=== PATIENT | female | born 1965 | race Hispanic/Latino ===

== ENCOUNTER 2022-01-10 06:53 | Inpatient (IN) | payer OTHER ==
[2022-01-04 12:13] LABS: BASOPHILS % (AUTO) 0.5 % (0.0-5.0); EOSINOPHILS % (AUTO) 2.6 % (0.0-8.0); HEMATOCRIT 45.6 % (36-48); LYMPHOCYTES % (AUTO) 34.1 % (21.0-51.0); MEAN CORPUSCULAR HEMOGLOBIN 25.8 pg (27.0-33.0); MEAN CORPUSCULAR HGB CONC 31.1 g/dL (32.0-36.0); MEAN CORPUSCULAR VOLUME 82.8 fL (79-99); MONOCYTES % (AUTO) 4.7 % (3.0-13.0); NEUTROPHILS % (AUTO) 57.8 % (40.0-77.0); PLATELET COUNT (AUTO) 278 K/uL (130-400); RED BLOOD CELL COUNT(AUTO) 5.51 MIL/uL (4.00-5.50); RED CELL DISTRIBUTION WIDTH 13.5 % (11.0-15.5); WHITE BLOOD COUNT (AUTO) 6.6 K/uL (4.8-10.8)
[2022-01-04 12:52] LABS: ALBUMIN 3.8 g/dL (3.5-5.0); BILIRUBIN,TOTAL 0.6 mg/dL (0.2-1.0); CREATININE 0.6 mg/dL (0.5-1.5); TOTAL PROTEIN, SERUM 7.5 g/dL (6.0-8.3)
[2022-01-09 14:30] VITALS: BP 131/78
[2022-01-10] VITALS (20 sets, daily range): BP systolic 91–139; BP diastolic 55–79
[~2022-01-10] VITALS: Ht 167.6 cm; Wt 109.6 kg
[~2022-01-10 06:53] MED LIST: BUSP10TA3 PO; CLON0.1T PO; DULO20CA18 PO; FAMO20TA8 PO; FLUT15.845 NS; FLUT1AER4 IH; HYDR-4153 PO; IPRA4AER IH; METF-444 PO; MONT-39 PO; NITR0.4T50 SL; PANT20TA18 PO; PREG100C55 PO; TIOT18CA3 IH; TOPI50TA24 PO; [UNRECOGNIZED DRUG - OTHER] SQ
[2022-01-10] MEDS ORDERED: 0.9%NACL 1000ML 1,000 ML IV ONE ×2 (07:18→07:27)
[2022-01-10] MEDS: CEFAZOLIN SODIUM 1 GM VIAL ONE ×2 (07:45→12:34)
[2022-01-10] MEDS ORDERED: METRONIDAZOLE 500MG/100ML BAG 100 ML ONE (07:58)
[2022-01-10] MEDS ORDERED: SUCCINYLCHOLINE CHLORIDE 20 MG/ML 10 ML VIAL ONE (11:59)
[2022-01-10] MEDS ORDERED: LIDOCAINE PF 100MG/5ML (2%) SYRINGE 5ML ONE (11:59)
[2022-01-10] MEDS ORDERED: FENTANYL CITRATE PF 50 MCG/1 ML 2ML VIAL ONE (12:00)
[2022-01-10] MEDS ORDERED: PROPOFOL 10 MG/ML 20ML VIAL IV ONE (12:00)
[2022-01-10] MEDS ORDERED: ROCURONIUM 10MG/1ML SYR 10 MG/ML ML ONE ×2 (12:00→13:19)
[2022-01-10] MEDS ORDERED: MIDAZOLAM HCL 1 MG/ML 2ML VIAL ONE (12:00)
[2022-01-10] MEDS ORDERED: BUPIVACAINE/PF 0.25% 30ML VIAL IJ ONE (12:31)
[2022-01-10] MEDS ORDERED: PROCHLORPERAZINE 10MG/2ML INJ IV PRN (13:00)
[2022-01-10] MEDS ORDERED: ENOXAPARIN SODIUM 30 MG/0.3 ML SQ SCH (13:00)
[2022-01-10] MEDS ORDERED: KETOROLAC 30MG VIAL (30MG/ML) IV PRN (13:00)
[2022-01-10] MEDS ORDERED: HYDROMORPHONE PCA 10 MG/50 ML 50 ML IV PRN (13:00)
[2022-01-10] MEDS ORDERED: ONDANSETRON 4MG INJ IVP PRN (13:00)
[2022-01-10] MEDS ORDERED: GLYCOPYRROLATE 1 MG/5 ML SYRINGE ONE (14:26)
[2022-01-10] MEDS ORDERED: NEOSTIGMINE 5MG/5ML SYR IV ONE (14:26)
[2022-01-10] MEDS ORDERED: MEPERIDINE-PF 25 MG/ML SYG ONE (15:06)
[2022-01-10] MEDS: D5LR-20 MEQ KCL 1000 ML 1,000 ML IV SCH ×2 (17:54→23:34)
[2022-01-10] MEDS ORDERED: DEXTROSE 50%-WATER 50 ML DISP.SYRIN IV PRN (19:30)
[2022-01-10] MEDS ORDERED: GLUCAGON 1MG KIT 1 MG ML IM PRN (19:30)
[2022-01-10] MEDS: INSULIN HUMULIN R 100 UNIT/ML 3ML SQ SCH (20:12)
[2022-01-10] MEDS: ENOXAPARIN SODIUM 40 MG/0.4 ML SYRINGE SQ SCH (20:14)
[2022-01-11 00:02] VITALS: BP 127/70
[2022-01-11] MEDS: D5LR-20 MEQ KCL 1000 ML 1,000 ML IV SCH ×3 (02:20→14:41)
[2022-01-11 04:33] VITALS: BP 132/68
[2022-01-11] MEDS: INSULIN HUMULIN R 100 UNIT/ML 3ML SQ SCH ×2 (06:31→11:26)
[2022-01-11] MEDS: ENOXAPARIN SODIUM 40 MG/0.4 ML SYRINGE SQ SCH (06:34)
[2022-01-11 07:49] VITALS: BP 126/63
[2022-01-11] MEDS ORDERED: DIATR MEGLU/DIATRIZOATE SODIUM 30 ML BOTTLE ONE (09:33)
[2022-01-11 10:51] VITALS: BP 121/72
== END 2022-01-11 16:20 | disposition home or self-care (01) | DRG 328 ==
LOC: DAHIP 06:53 → 4BH 15:47
PROVIDERS: ADMIT Surgery; ATTEND Surgery
PROC: 0D1647A Bypass Stomach to Jejunum with Autologous Tissue Substitute, Percutaneous Endoscopic Approach (ICD-10-PCS; principal; 2022-01-10 12:05)
PROC: 0DJ08ZZ Inspection of Upper Intestinal Tract, Via Natural or Artificial Opening Endoscopic (ICD-10-PCS; 2022-01-10 12:05)
DX: K91.89 Other postprocedural complications and disorders of digestive system (principal); K21.9 Gastro-esophageal reflux disease without esophagitis; E11.9 Type 2 diabetes mellitus without complications; E78.5 Hyperlipidemia, unspecified; I10 Essential (primary) hypertension; J45.909 Unspecified asthma, uncomplicated; E66.9 Obesity, unspecified; F32.A Depression, unspecified; F41.9 Anxiety disorder, unspecified; Z68.39 Body mass index [BMI] 39.0-39.9, adult
CPT/HCPCS: 36415; 43235; 74240; 80053; 82948; 85025; 86850; 86900; 86901; 87635; 93005; 94760; G0378; J0330; J0690; J1170; J1650; J1815; J1885; J2001; J2175; J2250; J2405; J2704; J2710; J3010; J3480; J3490; J7030; Q9963

== ENCOUNTER 2022-01-25 20:02 | Inpatient (IN) | payer OTHER ==
[~2022-01-25] VITALS: Ht 165.1 cm; Wt 104.3 kg
[2022-01-25] MEDS ORDERED: ONDANSETRON 4MG INJ IVP ONE ×2 (23:30)
[2022-01-25] MEDS ORDERED: 0.9%NACL 1000ML 1,000 ML IV ONE (23:30)
[2022-01-25 23:49] LABS: APPEARANCE,URINE CLEAR (CLEAR); BILIRUBIN,URINE NEGATIVE (NEGATIVE); COLOR,URINE YELLOW (YELLOW); GLUCOSE, URINE (UA) NEGATIVE (NEGATIVE); KETONES,URINE >=80 mg/dL (NEGATIVE); LEUKOCYTE ESTERASE ,URINE NEGATIVE (NEGATIVE); NITRATE,URINE NEGATIVE (NEGATIVE); OCCULT BLOOD,URINE NEGATIVE (NEGATIVE); PH,URINE 6.5 (5.0-8.0); PROTEIN,URINE NEGATIVE (NEGATIVE)
[2022-01-25 23:53] LABS: BASOPHILS % (AUTO) 0.3 % (0.0-5.0); EOSINOPHILS % (AUTO) 1.2 % (0.0-8.0); HEMATOCRIT 43.2 % (36-48); LYMPHOCYTES % (AUTO) 25.3 % (21.0-51.0); MEAN CORPUSCULAR HEMOGLOBIN 26.1 pg (27.0-33.0); MEAN CORPUSCULAR HGB CONC 31.3 g/dL (32.0-36.0); MEAN CORPUSCULAR VOLUME 83.4 fL (79-99); MONOCYTES % (AUTO) 5.4 % (3.0-13.0); NEUTROPHILS % (AUTO) 67.5 % (40.0-77.0); PLATELET COUNT (AUTO) 297 K/uL (130-400); RED BLOOD CELL COUNT(AUTO) 5.18 MIL/uL (4.00-5.50); RED CELL DISTRIBUTION WIDTH 14.3 % (11.0-15.5); WHITE BLOOD COUNT (AUTO) 6.6 K/uL (4.8-10.8)
[2022-01-25 23:58] LABS: CREATININE 0.6 mg/dL (0.5-1.5)
[2022-01-26 00:02] LABS: ALBUMIN 3.8 g/dL (3.5-5.0); BILIRUBIN,TOTAL 0.6 mg/dL (0.2-1.0); TOTAL PROTEIN, SERUM 7.7 g/dL (6.0-8.3)
[2022-01-26 00:12] LABS: BACTERIA,URINE Rare /HPF (None Seen); RBC,URINE 0-1 /HPF (0-1)
[2022-01-26 00:13] LABS: MUCUS,URINE Few LPF (None Seen); SQUAMOUS EPITHELIAL CELL,UR Moderate /HPF (0-2)
[2022-01-26] MEDS ORDERED: MORPHINE 2 MG SYG ONE (01:16)
[2022-01-26] MEDS ORDERED: MORPHINE 4 MG SYG IVP ONE (01:30)
[2022-01-26] MEDS: 0.9%NACL 1000ML 1,000 ML IV SCH ×3 (02:00→19:38)
[2022-01-26] MEDS ORDERED: ONDANSETRON 4MG INJ IV PRN (02:00)
[2022-01-26] MEDS ORDERED: HYDRALAZINE 20MG/ML VIAL IV PRN (02:00)
[2022-01-26] MEDS ORDERED: GLUCAGON 1MG KIT 1 MG ML IM PRN (04:30)
[2022-01-26] MEDS ORDERED: DEXTROSE 50%-WATER 50 ML DISP.SYRIN IV PRN (04:30)
[2022-01-26 05:42] LABS: BASOPHILS % (AUTO) 0.2 % (0.0-5.0); EOSINOPHILS % (AUTO) 1.6 % (0.0-8.0); HEMATOCRIT 41.9 % (36-48); LYMPHOCYTES % (AUTO) 20.9 % (21.0-51.0); MEAN CORPUSCULAR HEMOGLOBIN 25.9 pg (27.0-33.0); MEAN CORPUSCULAR VOLUME 83.6 fL (79-99); MONOCYTES % (AUTO) 7.7 % (3.0-13.0); NEUTROPHILS % (AUTO) 69.4 % (40.0-77.0); PLATELET COUNT (AUTO) 251 K/uL (130-400); RED BLOOD CELL COUNT(AUTO) 5.01 MIL/uL (4.00-5.50); RED CELL DISTRIBUTION WIDTH 14.3 % (11.0-15.5); WHITE BLOOD COUNT (AUTO) 6.3 K/uL (4.8-10.8)
[2022-01-26 05:52] LABS: CREATININE 0.5 mg/dL (0.5-1.5); POTASSIUM 3.4 mmol/L (3.5-5.1)
[2022-01-26] MEDS: INSULIN HUMULIN R 100 UNIT/ML 3ML SQ SCH ×4 (07:30→21:00)
[2022-01-26] MEDS ORDERED: POTASSIUM CHLORIDE 20MEQ/100ML 100 ML IV PRN (12:00)
[2022-01-26] MEDS ORDERED: LIDOCAINE HCL MPF 1% 5ML VIAL IV PRN (12:00)
[2022-01-26 17:13] VITALS: BP 114/69
[2022-01-26 20:00] VITALS: BP 114/69
[2022-01-26] MEDS ORDERED: BISACODYL 10 MG SUPP.RECT RC ONE (20:00)
[2022-01-27] VITALS: BP 100/67
[2022-01-27] MEDS: 0.9%NACL 1000ML 1,000 ML IV SCH ×3 (03:16→22:21)
[2022-01-27 04:00] VITALS: BP 126/74
[2022-01-27 06:21] LABS: BASOPHILS % (AUTO) 0.5 % (0.0-5.0); EOSINOPHILS % (AUTO) 3.4 % (0.0-8.0); HEMATOCRIT 37.5 % (36-48); LYMPHOCYTES % (AUTO) 34.9 % (21.0-51.0); MEAN CORPUSCULAR HEMOGLOBIN 25.7 pg (27.0-33.0); MEAN CORPUSCULAR HGB CONC 30.4 g/dL (32.0-36.0); MEAN CORPUSCULAR VOLUME 84.5 fL (79-99); MONOCYTES % (AUTO) 9.1 % (3.0-13.0); NEUTROPHILS % (AUTO) 51.9 % (40.0-77.0); PLATELET COUNT (AUTO) 238 K/uL (130-400); RED BLOOD CELL COUNT(AUTO) 4.44 MIL/uL (4.00-5.50); RED CELL DISTRIBUTION WIDTH 14.5 % (11.0-15.5); WHITE BLOOD COUNT (AUTO) 4.4 K/uL (4.8-10.8)
[2022-01-27] MEDS: INSULIN HUMULIN R 100 UNIT/ML 3ML SQ SCH ×4 (06:26→21:00)
[2022-01-27 06:37] LABS: CREATININE 0.6 mg/dL (0.5-1.5); POTASSIUM 3.5 mmol/L (3.5-5.1)
[2022-01-27 08:00] VITALS: BP 109/62
[2022-01-27 12:00] VITALS: BP 105/61
[2022-01-27 14:28] LABS: BILIRUBIN,TOTAL 0.6 mg/dL (0.2-1.0); TOTAL PROTEIN, SERUM 6.1 g/dL (6.0-8.3)
[2022-01-27 16:00] VITALS: BP 108/72
[2022-01-27] MEDS ORDERED: NITROGLYCERIN 0.4 MG SL TAB SL SCH (16:00)
[2022-01-27] MEDS ORDERED: DIATR MEGLU/DIATRIZOATE SODIUM 30 ML BOTTLE ONE ×2 (18:17→18:18)
[2022-01-27 20:00] VITALS: BP 113/62
[2022-01-27] MEDS ORDERED: TOPIRAMATE 25 MG TABLET PO SCH (21:00)
[2022-01-27] MEDS ORDERED: MONTELUKAST SODIUM 10 MG TAB PO SCH (21:00)
[2022-01-27] MEDS ORDERED: NON-FORMULARY MEDICATION 1 EACH (Buspirone HCl 10 MG) PO SCH (21:00)
[2022-01-27] MEDS ORDERED: NON-FORMULARY MEDICATION 1 EACH (Topiramate 50 MG) PO SCH (21:00)
[2022-01-27] MEDS: (Duloxetine HCl 20 MG) PO SCH (21:00)
[2022-01-27] MEDS ORDERED: FLUTICASONE PROPIONATE 50MCG/SPRAY 16 GM BOTTLE EN SCH (21:00)
[2022-01-27] MEDS ORDERED: NON-FORMULARY MEDICATION 1 EACH (Fluticasone Propionate 15.8 ML) NS SCH (21:00)
[2022-01-27] MEDS: BUSPIRONE HCL 5 MG TABLET PO SCH (22:09)
[2022-01-27] MEDS: PREGABALIN 100 MG CAPSULE PO SCH (22:09)
[2022-01-28] VITALS: BP 104/44
[2022-01-28 04:00] VITALS: BP 107/66
[2022-01-28] MEDS: INSULIN HUMULIN R 100 UNIT/ML 3ML SQ SCH ×2 (06:21→11:30)
[2022-01-28] MEDS: 0.9%NACL 1000ML 1,000 ML IV SCH ×2 (06:23→12:29)
[2022-01-28 08:00] VITALS: BP 105/53
[2022-01-28] MEDS ORDERED: FLUTICASONE SALMETEROL IH SCH (09:00)
[2022-01-28] MEDS ORDERED: SPIRIVA RESPIMAT IH SCH (09:00)
[2022-01-28] MEDS ORDERED: HUMALOG MIX SQ SCH (09:00)
[2022-01-28] MEDS: BUSPIRONE HCL 5 MG TABLET PO SCH ×2 (09:03→14:33)
[2022-01-28] MEDS: PREGABALIN 100 MG CAPSULE PO SCH ×2 (09:03→14:33)
[2022-01-28] MEDS: (Duloxetine HCl 20 MG) PO SCH (09:04)
[2022-01-28 12:00] VITALS: BP 115/71
== END 2022-01-28 16:00 | disposition home or self-care (01) | DRG 390 ==
LOC: EDH 20:02 → EDHIP 01-26 01:39 → 3BH 01-26 16:57
PROVIDERS: ADMIT Internal Medicine; ATTEND Internal Medicine
DX: K56.600 Partial intestinal obstruction, unspecified as to cause (principal); Z20.822 Contact with and (suspected) exposure to COVID-19; J45.909 Unspecified asthma, uncomplicated; E78.00 Pure hypercholesterolemia, unspecified; E11.40 Type 2 diabetes mellitus with diabetic neuropathy, unspecified; Z90.49 Acquired absence of other specified parts of digestive tract; I10 Essential (primary) hypertension; E87.6 Hypokalemia; Z98.84 Bariatric surgery status; E78.5 Hyperlipidemia, unspecified; Z87.01 Personal history of pneumonia (recurrent); E66.01 Morbid (severe) obesity due to excess calories; K21.9 Gastro-esophageal reflux disease without esophagitis; M19.90 Unspecified osteoarthritis, unspecified site; Z68.38 Body mass index [BMI] 38.0-38.9, adult
CPT/HCPCS: 36415; 74176; 74250; 80048; 80053; 81001; 82948; 83690; 85025; 87635; G0378; J2405; J3480; J7030; Q9963